=== PATIENT | male | born 1930 ===

== ENCOUNTER 2016-08-22 10:46 | Day surgery (SDC) | payer BC, MEDICARE ==
--- NOTE | 2016-08-07 08:48 | HP ---
ADMISSION HISTORY AND PHYSICAL: DATE OF ADMISSION: 08/22/16 ATTENDING SURGEON: Dr. Luis Conteh. (dictated by MARA Han) CHIEF COMPLAINT: Left inguinal hernia. HISTORY OF PRESENT ILLNESS: This is an 86-year-old male with recently diagnosed left inguinal hernia by Dr. Williamson and referred for evaluation. The patient states that for a period of months, maybe even over the past year or so , he has noted occasional swelling in the left groin and associated discomfort, particularly with increased activity, i.e., standing or walking. He has not had anything to suggest incarceration or strangulation. He has not had any particular changes in his GI function. He was seen in our office by Dr. Conteh on 07/27/16 at which time exam confirmed the presence of a left inguinal hernia which was minimally tender and reducible. Dr. Conteh discussed with him the indications for repair and methods thereof as well as the risks, benefits, and alternatives including the option of no surgery. The patient would like to proceed as scheduled with open repair, left inguinal hernia with mesh. PAST MEDICAL HISTORY: 1. COPD. 2. Moderately severe aortic stenosis (see below). 3. Coronary artery disease (IA x1 at age 68 with recent followup by Dr. Knight). 4. Hyperlipidemia. 5. Chronic low back pain. PAST SURGICAL HISTORY: 1. He is status post open repair AAA, 2003. 2. Right inguinal herniorrhaphy. 3. Cardiac catheterization x3. CURRENT MEDICATIONS: 1. Oxygen 2 L at night and p.r.n. during the day. 2. Amlodipine 5 mg q. day. 3. Lipitor 20 mg q. day. 4. Hydrochlorothiazide 12.5 mg q. day. 5. Lisinopril 40 mg q. day. 6. Toprol-XL 25 mg q. day. 7. Spiriva 18 mcg 1 inhalation daily. 8. Aspirin 81 mg once daily (instructed to continue perioperatively unless otherwise directed by Dr. Knight). 9. Oxycodone/acetaminophen 10/325 one tablet every 4 to 6 hours p.r.n. for pain (he generally uses about 4 and sometimes up to 6 tablets per day). 10. Nitroglycerin 0.4 mg sublingual q.5 minutes up to 3 doses as needed (has not needed). 11. Xanax 0.25 mg q.h.s. p.r.n. for anxiety (uses once or twice weekly). 12. ProAir HFA 108 mcg per activation 2 puffs q.4 hours p.r.n. (uses infrequently). DRUG ALLERGIES: PENICILLIN (rash), ZOCOR (the patient does not recall reaction) . FAMILY HISTORY: Negative for anesthesia problems, bleeding, or clotting disorders. SOCIAL HISTORY: The patient lives alone, but does have a female breakfast supervisor who lives in [place], but sometimes comes up to visit and/or he stays with her when he travels to [place] during the winter. The patient is retired from [employer]. He is a former smoker, 1 pack per day for approximately 65 years. He quit in 2011. He drinks alcohol infrequently. He denies other recreational drug use. REVIEW OF SYSTEMS: General: No recent constitutional symptoms or acute illnesses. His weight has been stable. Cardiovascular: He is followed by Dr. Knight and in fact has an appointment for repeat echo on 08/10/16 and a followup with Dr. Knight on 08/11/16. His most recent echo did show moderate LVH, normal LV function with an EF of 60%, and [id number] aortic stenosis which has been stable. The patient denies chest pain or increased shortness of breath beyond his baseline. Respiratory: COPD, on O2 at h.s. No recent exacerbations. GI: No problems reported other than his chronic constipation for which he uses ex-lax on a p.r.n. basis approximately every third day. No upper GI symptoms. : He is followed by Dr. Williamson. He apparently had some degree of BPH. He has been followed by Dr. 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 Dr. Conteh was planning to discuss any indication for surgery regarding the spermatocele with Dr. Williamson and I will try to confirm that. Endocrine: No diabetes or thyroid dysfunction. Musculoskeletal: Chronic low back pain often involving the left lower extremity as well. PHYSICAL EXAMINATION GENERAL: Well-nourished, well-developed male, in no acute distress. VITAL SIGNS: Height 68.5 inches, weight 192 pounds, blood pressure 118/70, pulse 84, respirations 16. HEENT: Pupils small. EOMs intact. No conjunctival pallor. Oropharynx: He is edentulous. No intraoral lesions. NECK: No lymphadenopathy, thyromegaly, or masses. LUNGS: Clear to auscultation. No rales or wheezes. HEART: Regular rate and rhythm with systolic murmur heard best at the right sternal border. ABDOMEN: Well-healed lower abdominal scar from AAA repair. Left inguinal hernia as per Dr. Conteh' exam, not repeated today. Abdomen otherwise without palpable masses or organomegaly. No tenderness. GENITALIA: Not reexamined. RECTAL: Not done. BACK: No spinous process or CVA tenderness. EXTREMITIES: No edema. NEUROLOGICAL: Grossly intact. SKIN: Warm and dry. No suspicious rashes or lesions. IMPRESSION: Left inguinal hernia. PLAN: Open repair, left inguinal hernia with mesh. MARA MARIA CC: Dr. Ramírez Godinez [facility]; Dr. Tesfaye Williamson; Dr. Rodrigo Knight * [id number]/[facility] #: [id number] [facility]
[~2016-08-22 10:46] MED LIST: Buffered Lidocaine 1% SYRIN* 3 ML/SYR SYRINGE INTRADERM ONE; Bupivacaine 0.5% W/EPI SDV* 30 ML VIAL ONE; Lidocaine 1% INJ* 10 MG/ML 30 ML SDV ONE
[2016-08-22] MEDS ORDERED: ceFAZolin 2 GM PREMIX(*) 2 GM/50 ML BAG IVPB ONE (10:53)
[2016-08-22] MEDS ORDERED: Lidocaine 1% INJ* 10 MG/ML 30 ML SDV ONE (14:49)
[2016-08-22] MEDS ORDERED: Bupivacaine 0.5% W/EPI SDV* 30 ML VIAL ONE (14:49)
[2016-08-22] MEDS ORDERED: Midazolam* 1 MG/ML 2 ML VIAL (2 MG) ONE ×2 (15:07→15:27)
[2016-08-22] MEDS ORDERED: fentaNYL* 50 MCG/ML 2 ML VIAL (100 MCG VIAL) ONE (15:07)
[2016-08-22] MEDS ORDERED: Propofol* 10 MG/ML 20 ML BTL IV PUSH ONE (15:43)
[2016-08-22 17:18] VITALS: BP 113/43
--- NOTE | 2016-08-23 10:48 | OP ---
DATE OF OPERATION: 08/22/16 [facility] DATE OF : 32 SURGEON: Luis Conteh MD [employer]EWEL[employer] DEPARTMENT SUPERVISOR: None. ANESTHESIA: Local MAC. ANESTHESIOLOGIST: Dr. Reina. PRE-OP DIAGNOSIS: Left inguinal hernia. POST-OP DIAGNOSIS: Left inguinal hernia. OPERATIVE PROCEDURE: Open left inguinal hernia repair with mesh. ESTIMATED BLOOD LOSS: Minimal. IV FLUIDS: 950 mL crystalloid. SPECIMEN: None. DRAIN: None. COMPLICATIONS: None. COUNT: The instruments, needle, and sponge counts were correct. DESCRIPTION OF PROCEDURE: The patient was brought to the operating room and placed on the table supine. Sequential compression devices were placed on both lower extremities. Warming blanket was placed. He was prepped and draped in the usual sterile fashion. Received appropriate intravenous antibiotics. Time- out was performed. Local anesthetic was infiltrated into the skin and soft tissue in the left groin as a field block. An oblique incision was created approximately 8 cm long. He had a large amount of subcutaneous adiposity, which made visualization a little more difficult, necessitating a large incision. After dividing subcutaneous tissues with a combination of sharp dissection and cautery , the external oblique aponeurosis was identified. This was infiltrated with additional anesthetic and incised along the line of its fibers through the superficial ring. The underlying ilioinguinal nerve was initially preserved and dissected back; however, during maneuvering of the nerve to position it and preserve it medially, the nerve tore; therefore, it was ligated and approximated with 2-0 Polysorb and ligated distally as well and the intervening segments were removed. The contents of the inguinal canal were then isolated with a quarter-inch Ramana drain at the level of the pubic tubercle and a large indirect inguinal hernia was noted. The cord structures were dissected free from the sac. The sac was dissected back to the deep ring, it was twisted upon itself, ligated with 2-0 Polysorb, and then distally divided. The proximal sac was allowed to retract and then a repair was performed with a polypropylene plug and patch. The plug was fashioned from a piece of 6 x 6 inch polypropylene and after creating a cone-shaped plug, it was placed into the deep ring and sutured to the overlying musculature with 2-0 Polysorb. An onlay patch was fashioned from a separate piece of polypropylene and it was fashioned to cover the floor of the canal and suture it to the pubic tubercle with 2-0 Polysorb, the shelving edge of the inguinal ligament and the conjoined tendon with a split in the mesh laterally to allow the egress of the spermatic cord. The mesh was reconstituted laterally with 2-0 Surgipro and the tail stuck beneath the external oblique aponeurosis, which was then run closed with 2 -0 Polysorb. The Sharon's was closed with 3-0 Polysorb. Skin was closed with 4 -0 Monocryl in a subcuticular fashion. Steri-Strips were applied. The patient tolerated the procedure well and transferred to recovery room in stable condition. CC: Rodrigo Knight MD; Ramírez Godinez MD * [id number]/[facility] #: [id number] MTDD
== END 2016-08-22 17:18 | disposition home or self-care (01) ==
LOC: OR 10:46
PROVIDERS: ATTEND Surgery
DX: K40.90 Unilateral inguinal hernia, without obstruction or gangrene, not specified as recurrent (principal); J44.9 Chronic obstructive pulmonary disease, unspecified; I35.0 Nonrheumatic aortic (valve) stenosis; I25.10 Atherosclerotic heart disease of native coronary artery without angina pectoris; I25.2 Old myocardial infarction; E78.5 Hyperlipidemia, unspecified; Z87.891 Personal history of nicotine dependence
CPT/HCPCS: C1781; J0690; J2001; J2250; J2704; J3010

== ENCOUNTER 2017-08-22 19:00 | Emergency (ER) | payer MEDICARE ==
--- NOTE | 2017-08-22 19:40 | ED ---
Shortness of Breath - HPI Summary HPI Summary: 87-year-old man sent in by ambulance from his doctor's office with chief complaint of intermittent exertional dyspnea with a tightness in the throat that began yesterday. He describes working in his garage for 90 minutes before he have any symptoms at all. This quickly abated after sitting down, resting and putting himself on oxygen. He does wear oxygen at night always. He states that when he puts his oxygen on that his symptoms go away quickly. He went to his doctor's today and reported this, had an EKG and was sent in. He states his doctor told him that he needed to take an ambulance so he didn't have to wait in the waiting room. He denies any chest pain, current shortness of breath , weakness or wheezing. He has not had cough or fever. He has known critical aortic stenosis and is due to have reevaluation for possible repair in the next couple weeks. He really would not like to have this done if it's possible. Currently, his oxygen saturation is 100% on room air. - History of Current Complaint Chief Complaint: EDShortnessOfBreath Time Seen by Provider: 08/22/17 19:14 Hx Obtained From: Patient - Allergy/Home Medications Allergies/Adverse Reactions: Allergies Allergy/AdvReac Type Severity Reaction Status Date / Time Penicillins Allergy Rash Verified 08/22/17 19:13 simvastatin Allergy Unknown Verified 08/22/17 19:13 Reaction Details Home Medications: Home Medications ALPRAZolam TAB* [Xanax TAB*] 0.25 mg PO DAILY PRN MDD 1 tablet 08/22/17 [ History Confirmed 08/22/17] Aspirin EC TAB* [Ecotrin EC Low Dose 81 MG*] 81 mg PO DAILY 08/22/17 [History Confirmed 08/22/17] Atorvastatin* [Lipitor*] 20 mg PO DAILY 08/22/17 [History Confirmed 08/22/17] Hydrochlorothiazide TAB* [Hydrodiuril TAB*] 12.5 mg PO DAILY 08/22/17 [History Confirmed 08/22/17] Lisinopril TAB* [Prinivil TAB*] 40 mg PO DAILY 08/22/17 [History Confirmed 08/22] Metoprolol Succinate XL TAB* [Toprol XL TAB*] 25 mg PO DAILY 08/22/17 [History Confirmed 08/22/17] amLODIPine TAB* [Norvasc 5 mg TAB*] 5 mg PO DAILY 08/22/17 [History Confirmed ] PMH/Surg Hx/FS Hx/Imm Hx Previously Healthy: No - known significant aortic stenosis, COPD with nighttime oxygen Cardiovascular History: Reports: Hx Coronary Artery Disease, Hx Hypertension - controlled with meds, Other Cardiovascular Problems/Disorders - hyperlipidemia GI History: Reports: Other GI Disorders - constipation from pain pills History: Reports: Other Problems/Disorders - enlarged prostate, but no probs Musculoskeletal History: Reports: Hx Arthritis - shoulder, Other Musculoskeletal History - chronic lumbar pain Sensory History: Reports: Hx Cataracts - bilateral, no surgery yet, 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 right inguinal hernia repair - 2000, [facility] [place], [place]. cardiac caths x3 (one in [place], two at [facility]). left wrist ganglion cyst removal - 30 yrs ago - [facility] [place], [place] Hx Anesthesia Reactions: No Infectious Disease History: No Infectious Disease History: Denies: Traveled Outside the [place] in Last 30 Days - Social History Alcohol Use: Rare Substance Use Type: Reports: None Smoking Status (MU): Former Smoker Amount Used/How Often: 1ppd for 65 years Review of Systems Negative: Fever, Chills Negative: Palpitations, Chest Pain Positive: Shortness Of Breath. Negative: Cough Negative: Abdominal Pain, Vomiting, Diarrhea Negative: Weakness, Paresthesia, Numbness, Syncope All Other Systems Reviewed And Are Negative: Yes Physical Exam Triage Information Reviewed: Yes Vital Signs On Initial Exam: Initial Vitals Temp Pulse Resp BP Pulse Ox 98.4 F 56 18 129/59 100 08/22/17 19:14 08/22/17 19:14 08/22/17 19:14 08/22/17 19:14 08/22/17 19:14 Vital Signs Reviewed: Yes Appearance: Positive: Well-Appearing, No Pain Distress, Well-Nourished Skin: Positive: Warm, Skin Color Reflects Adequate Perfusion, Dry Head/Face: Positive: Normal Head/Face Inspection Eyes: Positive: Normal, EOMI ENT: Positive: Normal ENT inspection Neck: Positive: Other: - No JVD Respiratory/Lung Sounds: Positive: Clear to Auscultation, Breath Sounds Present. Negative: Rales, Rhonchi Cardiovascular: Positive: Normal, RRR, Murmur - Great 3 systolic murmur heard best over the aortic valve. Negative: Leg Edema Left, Leg Edema Right Abdomen Description: Positive: Nontender, No Organomegaly Bowel Sounds: Positive: Present Musculoskeletal: Positive: Normal, Strength/ROM Intact Neurological: Positive: Normal, Sensory/Motor Intact, Alert, Oriented to Person Place, Time, CN Intact II-III, Normal Gait Psychiatric: Positive: Normal Diagnostics - Vital Signs Vital Signs Temp Pulse Resp BP Pulse Ox 08/22/17 19:14 98.4 F 56 18 129/59 100 - Laboratory Lab Statement: Any lab studies that have been ordered have been reviewed, and results considered in the medical decision making process. Re-Evaluation - Re-Evaluation First Eval Re-Evaluation Time: 19:37 Change: Improved - Patient walked briskly around the department without any symptoms. His oxygen saturation maintained at 95% and above throughout the entire time. Course/Dx - Course Course Of Treatment: Patient with some tightness in the throat after exerting himself and is described for almost 90 minutes. Symptoms resolved with oxygen. Known critical aortic stenosis. No wheezing, good aeration, oxygen saturations 100% on room air. He is not dyspneic and speaks in full and complete sentences. He continued to talk conversationally throughout his brisk walk around the department, and never dropping oxygen saturations below 95% or experiencing any symptoms. I presume that with more exertion his critical aortic stenosis may be producing symptoms. This is likely why his station mechanic as recommended repair of the valve. This does not appear to be an exacerbation of his COPD. He would like his albuterol inhaler refilled however as it is getting empty. - Diagnoses Provider Diagnoses: Aortic stenosis, Exertional dyspnea, History of COPD Discharge - Sign-Out/Discharge Documenting (check all that apply): Discharge/Admit/Transfer - Discharge Plan Condition: Good Disposition: HOME Patient Education Materials: Aortic Stenosis (ED) Referrals: Pancho Ledesma MD [Primary Care Provider] - Additional Instructions: Have oxygen available should you needed during times of exertion. Uvula clear exhibiting symptoms due to your aortic stenosis. Inhaler was sent anterior pharmacy. Return with chest pain, difficulty breathing, fever/cough, worse or other concerns as discussed. - Billing Disposition and Condition Condition: GOOD Disposition: HOME
[2017-08-22 20:09] VITALS: BP 130/59
== END 2017-08-22 20:09 | disposition home or self-care (01) ==
LOC: ED 19:00
DX: I35.0 Nonrheumatic aortic (valve) stenosis (principal); R06.00 Dyspnea, unspecified; J44.9 Chronic obstructive pulmonary disease, unspecified; Z87.891 Personal history of nicotine dependence; Z88.0 Allergy status to penicillin; Z88.8 Allergy status to other drugs, medicaments and biological substances
CPT/HCPCS: 99282

== ENCOUNTER 2017-09-01 19:47 | Emergency (ER) | payer MEDICARE ==
[2017-09-01 20:18] VITALS: BP 117/54
--- NOTE | 2017-09-01 20:29 | UC ---
Lower Extremity/Ankle HPI - HPI Summary HPI Summary: c/o right foot pain. Unsure of injury. Much worse with walking. Oxycodone very helpful. Noticed swelling in the ankle and the foot last night. No chest pain or change in SOB. - History of Current Complaint Chief Complaint: UCGeneralIllness Stated Complaint: RT FOOT SWELLING Time Seen by Provider: 09/01/17 20:17 Hx Obtained From: Patient Onset/Duration: Sudden Onset, Lasting Days - 1 Severity Initially: Moderate Severity Currently: Moderate Pain Intensity: 4 - 7 with walking Aggravating Factor(s): Standing, Ambulation Alleviating Factor(s): Rest, Elevation Able to Bear Weight: Yes - Risk Factors Gout Risk Factors: Hypertension DVT Risk Factors: Recent Trauma - 5 weeks ago fell and hit knees. Septic Arthritis Risk Factor: Extremes of Age - Allergies/Home Medications Allergies/Adverse Reactions: Allergies Allergy/AdvReac Type Severity Reaction Status Date / Time Penicillins Allergy Rash Verified 09/01/17 20:04 simvastatin Allergy Unknown Verified 09/01/17 20:04 Reaction Details Home Medications: Home Medications Oxycodone HCl/Acetaminophen [Endocet] 1 tab PO Q4H PRN 09/01/17 [History Confirmed 09/01/17] PMH/Surg Hx/FS Hx/Imm Hx - Surgical History Surgical History: Yes Surgery Procedure, Year, and Place: open repair AAA - 2003, [facility]. right inguinal hernia repair - 2000, [facility] [place]. cardiac caths x3 (one in [place], two at [facility]). left wrist ganglion cyst removal - 30 yrs ago - [facility] [place] - Social History Alcohol Use: Rare Substance Use Type: Prescribed Smoking Status (MU): Former Smoker Amount Used/How Often: 1ppd for 65 years When Did the Patient Quit Smoking/Using Tobacco: 6 years ago Review of Systems Respiratory: Shortness Of Breath - chronic Musculoskeletal: Arthralgia, Edema Is Patient Immunocompromised?: No All Other Systems Reviewed And Are Negative: Yes Physical Exam Triage Information Reviewed: Yes Appearance: Well-Appearing, No Pain Distress - at rest, Well-Nourished, Pain Distress - with walking Vital Signs: Initial Vital Signs Temp 99.1 F 09/01/17 20:10 Pulse 69 09/01/17 20:10 Resp 20 09/01/17 20:10 BP 117/54 09/01/17 20:10 Pulse Ox 98 05/05/18 20:10 Vital Signs Reviewed: Yes Eyes: Positive: Conjunctiva Clear Neck exam: Normal Neck: Positive: Supple Respiratory: Positive: Lungs clear Cardiovascular: Positive: RRR, Murmur:Sys:Grade _?_/ - 2-3/ Musculoskeletal: Positive: Edema @ - right LE from below the knee, Other: - Some proximal dorsal foot tenderness Negative Vale's/ or palpable cords. Psychological Exam: Normal Skin Exam: Normal Lower Extremity Course/Dx - Differential Dx/Diagnosis Differential Diagnosis/HQI/PQRI: Fracture (Closed), Sprain, Strain, Tendonitis, Tenosynovitis Provider Diagnoses: Right foot pain. Edema right lower extremity Discharge - Sign-Out/Discharge Documenting (check all that apply): Discharge/Admit/Transfer - Discharge Plan Condition: Stable Disposition: HOME Patient Education Materials: Swollen Joint (ED), Leg Edema (ED) Referrals: Ramírez Godinez MD [Primary Care Provider] - Additional Instructions: Xray is normal except for some arthritis. Keep the leg elevated. If the swelling or pain is worse go to the ER. - Billing Disposition and Condition Condition: STABLE Disposition: HOME
--- NOTE | 2017-09-01 21:08 | RAD ---
INDICATION: Right foot pain and swelling. TECHNIQUE: 3 views of the right foot were obtained. FINDINGS: There is diffuse soft tissue swelling which is most prominent over the dorsal aspect of the foot. The bones of breath and pain in normal alignment. No fracture is seen. 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 IMPRESSION: SOFT TISSUE SWELLING, NO FRACTURE IS SEEN. IF THE PATIENT'S SYMPTOMS PERSIST RECOMMEND FOLLOW-UP IMAGING.
== END 2017-09-01 20:59 | disposition home or self-care (01) ==
LOC: UCCORT 19:47
DX: M79.671 Pain in right foot (principal); R60.9 Edema, unspecified; Z88.1 Allergy status to other antibiotic agents; Z88.8 Allergy status to other drugs, medicaments and biological substances; Z87.891 Personal history of nicotine dependence
CPT/HCPCS: 99211; G0463

== ENCOUNTER 2018-01-19 13:25 | Emergency (ER) | payer MEDICARE ==
--- NOTE | 2018-01-19 14:36 | ED ---
Shortness of Breath - HPI Summary HPI Summary: 87 year old M BIB EMS to [facility] accompanied by son complains of shortness of breath since 3 days ago, worse since 12:00 today. Symptoms aggravated by exertion. Symptoms alleviated by nothing. He reports nausea. He denies chest pain and fever. 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 Per son, patient had aortic valve replaced in October 2017 at [place]. EMS reports patient was hypotensive en route. - History of Current Complaint Chief Complaint: EDShortnessOfBreath Time Seen by Provider: 01/19/18 14:22 Hx Obtained From: Patient, Family/Jumpbasting Lining Baster - son, EMS Onset/Duration: Lasting Days - 3, Still Present, Worse Since - 12:00 today Aggrevating Factors: Other - exertion Alleviating Factors: Nothing - Allergy/Home Medications Allergies/Adverse Reactions: Allergies Allergy/AdvReac Type Severity Reaction Status Date / Time Penicillins Allergy Rash Verified 01/19/18 14:18 simvastatin Allergy Unknown Verified 01/19/18 14:18 Reaction Details Home Medications: Home Medications Clopidogrel TAB* [Plavix TAB*] 75 mg PO DAILY 01/19/18 [History Confirmed ] Ferrous Sulfate TAB* 325 mg PO DAILY 01/19/18 [History Confirmed 01/19/18] Furosemide 20 mg PO DAILY 01/19/18 [History Confirmed 01/19/18] PMH/Surg Hx/FS Hx/Imm Hx Previously Healthy: No Cardiovascular History: Reports: Hx Coronary Artery Disease, Hx Hypertension - controlled with meds, Other Cardiovascular Problems/Disorders - hyperlipidemia Respiratory History: Reports: Hx Chronic Obstructive Pulmonary Disease (COPD) GI History: Reports: Other GI Disorders - constipation from pain pills History: Reports: Other Problems/Disorders - enlarged prostate, but no probs Musculoskeletal History: Reports: Hx Arthritis - shoulder, Other Musculoskeletal History - chronic lumbar pain Denies: Hx Rheumatoid Arthritis, Hx Osteoporosis Sensory History: Reports: Hx Cataracts - bilateral, no surgery yet, 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 open repair AAA - 2003, [facility]. right inguinal hernia repair - 2000, [facility] [place]. cardiac caths x3 (one in [place], two at [facility]). left wrist ganglion cyst removal - [address] ago - [facility] [place] Hx Anesthesia Reactions: No - Immunization History Immunizations Up to Date: Yes Infectious Disease History: No Infectious Disease History: Denies: Traveled Outside the [place] in Last 30 Days - Family History Known Family History: Positive: Other - stroke, Alzheimer's disease - Social History Alcohol Use: Rare Hx Substance Use: Yes Substance Use Type: Reports: Prescribed Hx Tobacco Use: Yes Smoking Status (MU): Former Smoker Amount Used/How Often: 1ppd for 65 years Review of Systems Negative: Fever Positive: Other - dry mouth Negative: Chest Pain Positive: Shortness Of Breath Positive: Nausea All Other Systems Reviewed And Are Negative: Yes Physical Exam - Summary Physical Exam Summary: VITAL SIGNS: Reviewed. GENERAL: Patient is an elderly male who is lying comfortable in the stretcher. Patient is not in any acute respiratory distress. He has some lethargy and hypotension. HEAD AND FACE: No signs of trauma. No ecchymosis, hematomas or skull depressions. No sinus tenderness. EYES: PERRLA, EOMI x 2, No injected conjunctiva, no nystagmus. EARS: Hearing grossly intact. Ear canals and tympanic membranes are within normal limits. MOUTH: Oropharynx within normal limits. NECK: Supple, trachea is midline, no adenopathy, no JVD, no carotid bruit, no c- spine tenderness, neck with full ROM. CHEST: Symmetric, no tenderness at palpation LUNGS: Clear to auscultation bilaterally. No wheezing or crackles. CVS: Ejection systolic murmur 2 out of 10 ABDOMEN: Soft, non-tender. No signs of distention. No rebound no guarding, and no masses palpated. Bowel sounds are normal. EXTREMITIES: FROM in all major joints, no edema, no cyanosis or clubbing. NEURO: Alert and oriented x 3. No acute neurological deficits. Speech is normal and follows commands. SKIN: Dry and warm RECTAL EXAM: No hemorrhoids, no gross blood, no melena Triage Information Reviewed: Yes Vital Signs On Initial Exam: Initial Vitals Temp Pulse Resp BP Pulse Ox 97.2 F 85 22 92/55 100 01/19/18 13:29 01/19/18 13:29 01/19/18 13:29 01/19/18 13:29 01/19/18 13:29 Vital Signs Reviewed: Yes Diagnostics - Vital Signs Vital Signs Temp Pulse Resp BP Pulse Ox 01/19/18 14:05 22 102/54 01/19/18 14:02 95 21 86/51 100 01/19/18 13:29 97.2 F 85 22 92/55 100 - Laboratory Result Diagrams: 01/19/18 15:50 01/19/18 15:50 Lab Statement: Any lab studies that have been ordered have been reviewed, and results considered in the medical decision making process. - Radiology CXR Radiology Interpretation Completed By: Radiologist - No radiographic evidence for acute cardiopulmonary abnormality on this portable chest x-ray. ED physician has reviewed this report. - EKG 1444 Cardiac Rate: NL - 86 BPM EKG Rhythm: Sinus Rhythm EKG Interpretation: No ST elev.Hyperacute T waves in 2,3,4. Inverted T-waves in leads III, AVF. Course/Dx - Course Assessment/Plan: This patient is an 87-year-old male who presents to the emergency department via ambulance with a chief complaint of having shortness of breath for the last couple days worsening this morning. He reports that last night he was unable to sleep because of the shortness of breath. The patient reports no chest pain no fevers no cough no palpitations. EMS reports that the patient was hypertensive initially and he was given 1 unit of IV fluids. Patient has past medical history significant for aortic stenosis status post repair, COPD with nighttime oxygen, coronary disease, hypertension, dyslipidemia. Patient also has history of a AAA repair , inguinal hernia repair , cardiac catheter 3. Initially the patient was placed in a electronic device monitor, the patient's blood pressure during the physical exam is 102/54 however before he was 86/51. Therefore I order a bolus of IV fluids. EKG shows a sinus rhythm at [address] elevations. Has a hyperacute T waves in V2 V3 and V4. Chest x-ray impression: No radiographic evidence of acute cuddy pulmonary abnormality. Blood work shows an hemoglobin of 5.40 with hematocrit of 17 and platelet is 133. INR is 1.06 and PTT of 20.3. Carbon dioxide is 20 BUN is 70 and creatinine 1.26. Glucose 139, lactic acid is 3.1, BNP is 214. Occult blood is positive. At this point since the H&H is low, I discussed the benefits and risk with the patient for blood transfusion. The patient understands the risk and benefits and he accepted for the blood transfusion. The patient will be given PRBCs a total of 2 units of blood. Since the patient has a positive occult blood and we do not have available GI services I discussed with the patient the need for transfer to a facility where we have a GI Services. The patient understands and agrees for the transfer. The patient is a little more stable, the blood pressure is 100/47 and 104/57. The patient is mentating well. At this time I discussed my physical exam findings and test results with Dr. Ivy ED attending at [facility] and he accepted the patient for transfer. Before transfer the patient continues to be alert and oriented 3 and he is more stable. The blood pressure right now is 102/57. The pulse is 84, respiratory rate is 20 O2 sat is 100% with 2 L of oxygen via nasal cannula. - Diagnoses Differential Diagnosis/HQI/PQRI: Positive: Asthma, Bronchitis, CHF, Chest Wall Pain, COPD Exacerbation, [place], Pneumonia, Pulmonary Edema, Unstable Angina Provider Diagnoses: GI bleed, Symptomatic anemia, Acute renal failure - Critical Care Time Critical Care Time: 75-104 min Discharge - Sign-Out/Discharge Documenting (check all that apply): Patient Departure - Discharge Plan Condition: Fair Disposition: TRANS HIGHER LVL OF CARE FAC Referrals: Ramírez Godinez MD [Primary Care Provider] - - Billing Disposition and Condition Condition: FAIR Disposition: Trans Higher Lvl of Care Fac - Attestation Statements Document Initiated by Scribe: Yes Documenting Scribe: Danae Garcia Provider For Whom Elvis is Documenting (Include Credential): Roman Peralta MD Scribe Attestation: I, Danae Garcia, scribed for Roman Peralta MD on 01/19/18 at 1824. Scribe Documentation Reviewed: Yes Provider Attestation: The documentation as recorded by the scribe, Danae Garcia accurately reflects the service I personally performed and the decisions made by me, Roman Peralta MD
[2018-01-19] MEDS ORDERED: NS 0.9% 1000 ML* 1,000 ML IV ONE (14:46)
--- NOTE | 2018-01-19 15:43 | RAD ---
INDICATION: Chest pain and shortness of breath COMPARISON: None. TECHNIQUE: Single AP portable view of the chest was obtained. FINDINGS: Image quality is compromised due to the relative inferiority of a portable chest x-ray. Postsurgical changes include a prostatic aortic valve. The heart and mediastinum exhibit normal size and contour. There is coarse calcification overlying the arch of the aorta. The lungs are grossly clear. There is no evidence of a large pleural effusion. Visualized bones are normal for the patient's age. IMPRESSION: No radiographic evidence for acute cardiopulmonary abnormality on this portable chest x-ray.
[2018-01-19 16:16] LABS: Hematocrit 17 % (42-52); Hemoglobin 5.4 g/dl (14.0-18.0); Mean Corpuscular HGB Conc 33 g/dl (31-36); Mean Corpuscular Hemoglobin 30 pg (27-31); Mean Corpuscular Volume 93 fL (80-94); Mean Platelet Volume 9.5 um3 (7.4-10.4); Platelet Count 133 10^3/ul (150-450); Red Blood Count 1.78 10^6/ul (4.00-5.40); Red Cell Distribution Width 16 % (10.5-15); White Blood Count 9.5 10^3/ul (3.5-10.8)
[2018-01-19 16:20] LABS: INR 1.06 (0.77-1.02)
[2018-01-19 16:26] LABS: EGFR Non-African American 54.3 (>60)
[2018-01-19 16:59] LABS: ABS Basophils 0 10^3/ul (0-0.2); ABS Eosinophils 0 10^3/ul (0-0.6); ABS Lymphocytes 0.8 10^3/ul (1.0-4.8); ABS Monocytes 0.3 10^3/ul (0-0.8); ABS Neutrophils 8.3 10^3/ul (1.5-7.7); ABS Nucleated RBC 0 10^3/ul; Eosinophil % 0 % (0-6); Lymphocyte % 8.8 % (25-47); Nucleated Red Blood Cells % 0
[2018-01-19 19:12] VITALS: BP 118/74
== END 2018-01-19 19:11 | disposition short-term general hospital (02) ==
LOC: ED 13:25
DX: K92.2 Gastrointestinal hemorrhage, unspecified (principal); D64.89 Other specified anemias; N17.9 Acute kidney failure, unspecified; R06.02 Shortness of breath; R11.0 Nausea; Z87.891 Personal history of nicotine dependence
CPT/HCPCS: 36415; 36430; 71045; 80053; 82270; 82550; 82553; 83605; 83874; 83880; 84484; 85025; 85610; 85730; 86140; 86850; 86900; 86901; 86922; 87040; 93005; 96360; 99285; P9040

== ENCOUNTER 2018-01-25 14:08 | Inpatient (IN) | payer MEDICARE ==
[2018-01-25] MEDS ORDERED: NS 0.9% 1000 ML* 1,000 ML IV ONE (14:29)
--- NOTE | 2018-01-25 15:13 | ED ---
Shortness of Breath - HPI Summary HPI Summary: Patient is an 87 y/o male who presents to the ED c/o SOB. He was having his follow up appointment with Dr. Ruby after his GI bleed, and was hypotensive, weak, SOB, and dizzy. Patient was here last week and was transferred to [facility]. He declined an endoscopy and colonoscopy at [facility]. Dr. Ruby requests a rectal exam and H&H for a possible blood transfusion. - History of Current Complaint Chief Complaint: EDShortnessOfBreath Time Seen by Provider: 01/25/18 14:27 Hx Obtained From: Patient Onset/Duration: Gradual Onset, Lasting Days - 1, Worse Since Timing: Constant Dyspnea At: Rest Aggrevating Factors: Nothing Alleviating Factors: Nothing Related History: Similar Episode - Allergy/Home Medications Allergies/Adverse Reactions: Allergies Allergy/AdvReac Type Severity Reaction Status Date / Time Penicillins Allergy Rash Verified 01/25/18 14:22 simvastatin Allergy Unknown Verified 01/25/18 14:22 Reaction Details Home Medications: Home Medications ALPRAZolam TAB* [Xanax TAB*] 0.25 mg PO BEDTIME PRN 01/25/18 [History Confirmed 01/25/18] Finasteride TAB* [Proscar TAB*] 5 mg PO DAILY 01/25/18 [History Confirmed ] Lisinopril TAB* [Prinivil TAB*] 5 mg PO DAILY 01/25/18 [History Confirmed ] Nitroglycerin TAB 0.4 MG* 0.4 mg SL Q5M PRN 01/25/18 [History Confirmed 01/25/18 ] Pantoprazole TAB (NF) [Protonix TAB (NF)] 40 mg PO DAILY 01/25/18 [History Confirmed 01/25/18] Senna TAB* [Senokot TAB*] 2 tab PO DAILY 01/25/18 [History Confirmed 01/25/18] Tiotropium CAP.INH* [Spiriva CAP.INH*] 1 cap.inh INH DAILY 01/25/18 [History Confirmed 01/25/18] ceFUROXime TAB(*) [Ceftin TAB 250 MG(*)] 250 mg PO BID 01/25/18 [History Confirmed 01/25/18] oxyCODONE/Acetamin 10/325(NF) [Percocet 10/325 (NF)] 1 tab PO Q4HR 01/25/18 [ History Confirmed 01/25/18] PMH/Surg Hx/FS Hx/Imm Hx Cardiovascular History: Reports: Hx Coronary Artery Disease, Hx Hypertension - controlled with meds, Other Cardiovascular Problems/Disorders - hyperlipidemia Respiratory History: Reports: Hx Chronic Obstructive Pulmonary Disease (COPD) GI History: Reports: Other GI Disorders - constipation from pain pills History: Reports: Other Problems/Disorders - enlarged prostate, but no probs Musculoskeletal History: Reports: Hx Arthritis - shoulder, Other Musculoskeletal History - chronic lumbar pain Denies: Hx Rheumatoid Arthritis, Hx Osteoporosis Sensory History: Reports: Hx Cataracts - bilateral, no surgery yet, 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 open repair AAA - 2003, [facility]. right inguinal hernia repair - 2000, [facility] [place]. cardiac caths x3 (one in [place], two at [facility]). left wrist ganglion cyst removal - 30 yrs ago - [facility] [place] Hx Anesthesia Reactions: No Infectious Disease History: No Infectious Disease History: Denies: Traveled Outside the [place] in Last 30 Days - Family History Known Family History: Positive: Other - stroke, Alzheimer's disease Negative: Blood Disorder - Social History Alcohol Use: Rare Hx Substance Use: Yes Substance Use Type: Reports: Prescribed Hx Tobacco Use: Yes Smoking Status (MU): Former Smoker Amount Used/How Often: 1ppd for 65 years Review of Systems Positive: Shortness Of Breath Neurological: Other - Dizziness Positive: Weakness All Other Systems Reviewed And Are Negative: Yes Physical Exam - Summary Physical Exam Summary: VITAL SIGNS: Reviewed. GENERAL: Patient is a well-developed and nourished MALE who is lying comfortable in the stretcher. Patient is not in any acute respiratory distress. HEAD AND FACE: No signs of trauma. No ecchymosis, hematomas or skull depressions. No sinus tenderness. EYES: PERRLA, EOMI x 2, No injected conjunctiva, no nystagmus. Pale sclera. EARS: Hearing grossly intact. Ear canals and tympanic membranes are within normal limits. MOUTH: Oropharynx within normal limits. NECK: Supple, trachea is midline, no adenopathy, no JVD, no carotid bruit, no c- spine tenderness, neck with full ROM. CHEST: Symmetric, no tenderness at palpation LUNGS: Clear to auscultation bilaterally. No wheezing or crackles. CVS: Regular rate and rhythm, S1 and S2 present, no murmurs or gallops appreciated. Hypotensive. ABDOMEN: Soft, non-tender. No signs of distention. No rebound no guarding, and no masses palpated. Bowel sounds are normal. EXTREMITIES: FROM in all major joints, no edema, no cyanosis or clubbing. NEURO: Alert and oriented x 3. No acute neurological deficits. Speech is normal and follows commands. SKIN: Dry and warm RECTAL: No hemorrhoids, no melena or gross blood. Triage Information Reviewed: Yes Vital Signs On Initial Exam: Initial Vitals Temp Pulse Resp BP Pulse Ox 97.9 F 68 22 92/63 98 01/25/18 14:19 01/25/18 14:19 01/25/18 14:19 01/25/18 14:19 01/25/18 14:19 Vital Signs Reviewed: Yes Diagnostics - Vital Signs Vital Signs Temp Pulse Resp BP Pulse Ox 01/25/18 14:19 97.9 F 68 22 92/63 98 - Laboratory Result Diagrams: 01/26/18 04:46 01/26/18 04:46 Lab Statement: Any lab studies that have been ordered have been reviewed, and results considered in the medical decision making process. - Radiology CXR Xray Interpretation: No Acute Changes - FINDINGS CONSISTENT WITH COPD, NO EVIDENCE FOR ACUTE FINDING. ED physician reviewed this report. Radiology Interpretation Completed By: Radiologist - EKG 14:39 Cardiac Rate: NL - 62 bpm EKG Rhythm: Sinus Rhythm EKG Interpretation: No ST elevation EKG Comparison: No Significant Change - Similar to EKG done on 01/19/18 Course/Dx - Course Assessment/Plan: Patient is an 87 y/o male who presents to the ED c/o SOB. He was having his follow up appointment with Dr. Ruby after his GI bleed, and was hypotensive, weak, SOB, and dizzy. Patient was here last week and was transferred to [facility]. He declined an endoscopy and colonoscopy at [facility]. Dr. Ruby requests a rectal exam and H&H for a possible blood transfusion. Blood test results shows a hemoglobin of 6.1, hematocrit of 19, chloride 114, BUNs 39 creatinine 1.33. Occult blood is positive. In the ED course the patient was given 2 units of blood. At this point I discuss my physical exam, findings and test results with Dr. Miranda from the hospital services were accepted the patient for admission. Dr. Ruby or Dr. Henriquez done the patient from the GI services. Patient is hemodynamically stable, alert and oriented 3. - Diagnoses Provider Diagnoses: GI bleed - Physician Notifications Discussed Care of Patient With: Gulshan Miranda Time Discussed With Above Provider: 16:00 Instructed by Provider To: Admit As Inpatient - Critical Care Time Critical Care Time: 75-104 min Discharge - Sign-Out/Discharge Documenting (check all that apply): Patient Departure - Admit - Discharge Plan Condition: Stable Disposition: ADMITTED TO [facility] - Billing Disposition and Condition Condition: STABLE Disposition: Admitted to [facility] - Attestation Statements Document Initiated by Scribe: Yes Documenting Scribe: Emily Craft Provider For Whom Pakoibe is Documenting (Include Credential): Roman Peralta MD Scribe Attestation: IEmily, scribed for Roman Peralta MD on 01/26/18 at 0757. Scribe Documentation Reviewed: Yes Provider Attestation: The documentation as recorded by the scribeEmily accurately reflects the service I personally performed and the decisions made by me, Roman Peralta MD
--- NOTE | 2018-01-25 15:34 | RAD ---
INDICATION: Shortness of breath. COMPARISON: Comparison is made with a prior study from January 19, 2018. TECHNIQUE: AP and lateral views of the chest were obtained. FINDINGS: The heart is mildly enlarged and unchanged from the prior exam. The patient appears to be status post aortic valve surgery. The lungs are hyperinflated and clear. No pleural effusion is seen. IMPRESSION: FINDINGS CONSISTENT WITH COPD, NO EVIDENCE FOR ACUTE FINDING.
[2018-01-25 16:00] LABS: Hematocrit 19 % (42-52); Hemoglobin 6.1 g/dl (14.0-18.0); Mean Corpuscular HGB Conc 33 g/dl (31-36); Mean Corpuscular Hemoglobin 31 pg (27-31); Mean Corpuscular Volume 93 fL (80-94); Mean Platelet Volume 9.2 um3 (7.4-10.4); Platelet Count 145 10^3/ul (150-450); Red Blood Count 1.99 10^6/ul (4.00-5.40); Red Cell Distribution Width 17 % (10.5-15); White Blood Count 8.5 10^3/ul (3.5-10.8)
[2018-01-25 16:32] LABS: ABS Basophils 0.1 10^3/ul (0-0.2); ABS Eosinophils 0.1 10^3/ul (0-0.6); ABS Monocytes 0.4 10^3/ul (0-0.8); ABS Nucleated RBC 0 10^3/ul; Eosinophil % 0.7 % (0-6); Lymphocyte % 11.6 % (25-47); Nucleated Red Blood Cells % 0; Tear Drop Cells 1+
[2018-01-25] MEDS ORDERED: Ondansetron INJ* 2 MG/ML VIAL IV PRN (16:37)
[2018-01-25] MEDS ORDERED: Pantoprazole IV* 40 MG IV ONE (16:37)
[2018-01-25] MEDS ORDERED: Albuterol 2.5 MG/3 ML NEB.SOL* (0.083%) INH PRN (16:37)
[2018-01-25] MEDS ORDERED: ALPRAZolam TAB* 0.25 MG PO PRN (16:42)
[2018-01-25 16:55] LABS: INR 1.02 (0.77-1.02)
[2018-01-25] MEDS ORDERED: oxyCODONE/Acetamin 10/325(NF) TAB PO PRN (16:57)
[2018-01-25 17:13] LABS: Hematocrit for Retic CNT 19 % (42-52); Immature Retic Fraction 0.46; RBC Retic Count 1.97 10^6/ul (4.6-6.2)
[2018-01-25] MEDS ORDERED: oxyCODONE/Acetamin 5/325 MG* TAB PO PRN (17:20)
[2018-01-25] MEDS ORDERED: oxyCODONE TAB* 5 MG TAB PO PRN (17:21)
[2018-01-25] MEDS ORDERED: NS 0.9% 500 ML* 500 ML IV ONE (17:41)
[2018-01-25] MEDS ORDERED: oxyCODONE/Acetamin 10/325(NF) TAB PO SCH (18:00)
[2018-01-25] MEDS: Pantoprazole IV* 80 MG in NS 0.9% 250 ML* 250 ML IVPB SCH (19:43)
--- NOTE | 2018-01-25 21:20 | HP ---
CC: Dr. Godinez; Dr. Henriquez; Dr. Ruby; Dr. Knight * HISTORY AND PHYSICAL: DATE OF ADMISSION: 01/25/18 PRIMARY CARE PROVIDER: Dr. Godinez. CONSULTING WINDOW TRIMMER APPRENTICE: Dr. Henriquez. ATTENDING PHYSICIAN WHILE IN THE HOSPITAL: Catrachito Miranda MD * (report dictated by Andrew Francisco NP). CHIEF COMPLAINT: Shortness of breath. HISTORY OF PRESENT ILLNESS: Mr. Tang is an 87-year-old male patient. He has a history of COPD; aortic stenosis, status post TAVR in October of this year. He has a history of an CT, CAD, hypertension, and chronic back pain, and he had a TAVR done in October of this year. He comes into the ER today. He actually was here on 01/19/18, six days ago with a hemoglobin of 5.4 and he was heme- positive in the stool. He was transferred to [facility] due to the lack of GI coverage. He was there and was admitted. They were planning on scoping him the next day; however, he signed out AMA because he was fed up with the blood draws according to the patient. He received 2 units of blood, he was feeling well, he went home, collected himself. The day after being signing out AMA, he called his PCP, he wanted to get the scope done, he was referred back to [facility]. At [facility], his hemoglobin had remained stable, so he was not admitted , he was referred to Dr. Ruby, so he saw Dr. Ruby today. When he was in the office today, on 01/25/18, the patient was complaining of feeling fatigued, short of breath, minimal exertion making him very short of breath, so he was referred to the ER. He does state that when he changes his position, he has been feeling lightheaded and with minimal exertion and walking, he is getting short of breath. He is denying any chest pain. He says he has not fainted. He denies having any nausea or vomiting. He denies any tarry stools. He denies any abdominal discomfort, but he was concerned because of the shortness of breath, so he came in. While , we found that his hemoglobin was 6.1 today and he was also again heme-positive. So because of this, we were asked to evaluate for admission. PAST MEDICAL HISTORY: Significant for: 1. COPD. 2. Aortic stenosis, status post TAVR in October of this year. 3. CAD. 4. CT. 5. Hyperlipidemia. 6. Back pain. PAST SURGICAL HISTORY: 1. He has had AAA repair. 2. TAVR. 3. Hernia repair. 4. Cardiac cath x3. HOME MEDICATIONS: According to the list that was provided include: 1. Proscar 5 mg daily. 2. Spiriva 1 capsule inhaled daily. 3. Percocet 1 tablet every 4 hours as needed for pain. 4. Senna 2 tablets daily. 5. Protonix 40 mg daily. 6. Nitro 0.4 mg sublingual x3 p.r.n. chest pain every 5 minutes. 7. Toprol-XL 25 mg daily. 8. Lisinopril 5 mg daily. 9. Ceftin 250 mg p.o. b.i.d. 10. Furosemide 20 mg daily. 11. Ferrous sulfate 325 mg daily. 12. Plavix 75 mg daily. 13. Norvasc 5 mg daily. 14. Lipitor 20 mg daily. 15. Aspirin 81 mg daily. 16. Ventolin 1 to 2 puffs every 4 hours as needed. 17. Xanax 0.25 mg at bedtime as needed. ALLERGIES TO MEDICATIONS: Include PENICILLIN and SIMVASTATIN. FAMILY HISTORY: His mother had a history of breast cancer. Father had a history of strokes. SOCIAL HISTORY: He is a former smoker, quit about 8 years ago. He does not drink alcohol. Surrogate decision maker is his son, Wilmer. REVIEW OF SYSTEMS: There is no documented fever. He denied having any significant weight change. There was no double vision. He denies having any ear discharge. There is no rhinorrhea. There is no sore throat, no thyroid enlargement. He denies having any chest pain. There was no orthopnea. There is dyspnea on exertion. There is no abdominal pain. There was no nausea, no vomiting. No dysuria, no frequency. No seizure, no loss of consciousness. No pruritus and no skin ulcerations. Review of 14 systems was completed, all others negative. PHYSICAL EXAMINATION GENERAL: At this time, Mr. Tang is an 87-year-old male patient. He is sitting in the ED stretcher. He does not appear to be in any acute distress. VITAL SIGNS: Blood pressure 96/52 with a pulse of 83, respirations were 22, his O2 sat was 100%, temperature 97.9. HEENT: Head: Atraumatic and normocephalic. Eyes: EOMs are intact. Sclerae anicteric and he did appear to be pale. Throat: Oral mucosa appears to be moist. No oropharyngeal erythema. NECK: Supple. LUNGS: Clear to auscultation bilaterally. There were no wheezes, rales, or rhonchi. HEART: Sounds S1, S2. He had a regular rate and rhythm. He had no murmurs, rubs, or gallops. ABDOMEN: Soft, flat, nontender. Bowel sounds were present. EXTREMITIES: Pulses were 2+ throughout. He had no peripheral edema. He had 5/ 5 strength. NEUROLOGICAL: He is awake. He is alert. He is oriented x3. Tongue is midline. No gross focal deficits. SKIN: Intact. DIAGNOSTIC STUDIES/LAB DATA: WBC of 8.5, RBC of 1.99, hemoglobin of 6.1, hematocrit of 19, platelet count of 145. His sodium was 143, potassium was 3.6 , chloride of 114, bicarb 20, BUN 39, creatinine of 1.33, glucose of 110, calcium 9.1. Total bili 0.6, AST 14, ALT 9, alk phos 36. CRP less than 1, albumin 3.5. He did have a chest x-ray obtained today, impression: Findings consistent with COPD. No acute findings. He had an EKG obtained today showing a normal sinus rhythm with a rate of 62. No ST elevations or T-wave inversions were noted with the exception he was inverted in lead V3, flat in II, and inverted in aVF, which was similar to his previous EKGs. Old medical records were reviewed. ASSESSMENT AND PLAN: Mr. Tang is an 87-year-old male patient coming into the ED today with complaints of fatigue, in addition to this dyspnea on exertion , on evaluation was found to have low H and H and heme-positive stool. He will be admitted under inpatient status for: 1. Presumed GI bleed. At this point, I did touch base with Dr. Henriquez. The plan will be to get serial H and Hs, 2 peripheral IVs, start a Protonix drip, give him 2 units of blood tonight. We will certainly watch him closely. His last blood pressure actually was better. It was 126/70. He is not tachycardic. He is asymptomatic. I will continue his beta-jo ann given his history of coronary artery disease with hold parameters. I did touch base with Dr. Knight. He was okay with stopping Plavix and aspirin in the short term. He will evaluate the patient tomorrow. We will place him on clear liquid diet and anticipate hopefully an upper endoscopy tomorrow. 2. Chronic obstructive pulmonary disease. I have ordered p.r.n. albuterol. We will continue his meds as prescribed. He does appear to be stable. 3. Aortic stenosis, status post TAVR. Again, Dr. Knight will be evaluating him. I am sending off LDH. His bili was normal. I do not believe he is hemolyzing as a source of anemia, but it is most likely again slow bleed, but just to be safe we will check those labs and we will continue to follow. 4. Coronary artery disease. Continue on statin and beta-jo ann therapy, holding aspirin. 5. Hyperlipidemia. Continue statin therapy. 6. Again, acute blood loss anemia. Again, I am sending off iron studies, B12, and folate. GI is going to evaluate. 7. Chronic back pain. Continue meds as prescribed. 8. DVT prophylaxis: Because of the active bleeding, he will be placed on SCDs. 9. Code status: Full code. 10. Fluids, electrolytes, and nutrition: A clear liquid diet has been ordered. TIME SPENT: Time spent on the admission was 60 minutes, greater than half the time was spent [id number] with the patient obtaining my history and physical, other half time was spent going over the plan of care with the patient and implementing the plan of care. I did discuss the plan of care with my attending , Dr. Miranda; he is in agreement. ANDREW FRANCISCO, TABITHA [id number]/CPS #: [id number] MTDD
[2018-01-26 01:25] LABS: Hematocrit 21 % (42-52); Hemoglobin 7.2 g/dl (14.0-18.0)
[2018-01-26 04:56] LABS: ABS Basophils 0 10^3/ul (0-0.2); ABS Eosinophils 0.2 10^3/ul (0-0.6); ABS Lymphocytes 1.1 10^3/ul (1.0-4.8); ABS Monocytes 0.4 10^3/ul (0-0.8); ABS Neutrophils 4.1 10^3/ul (1.5-7.7); ABS Nucleated RBC 0 10^3/ul; Eosinophil % 3.1 % (0-6); Hematocrit 20 % (42-52); Hemoglobin 6.8 g/dl (14.0-18.0); Lymphocyte % 19.2 % (25-47); Mean Corpuscular HGB Conc 33 g/dl (31-36); Mean Corpuscular Hemoglobin 31 pg (27-31); Mean Corpuscular Volume 92 fL (80-94); Mean Platelet Volume 8.8 um3 (7.4-10.4); Nucleated Red Blood Cells % 0; Platelet Count 113 10^3/ul (150-450); Red Blood Count 2.21 10^6/ul (4.00-5.40); Red Cell Distribution Width 16 % (10.5-15); White Blood Count 5.7 10^3/ul (3.5-10.8)
[2018-01-26 05:14] LABS: EGFR Non-African American 59.7 (>60)
[2018-01-26] MEDS: Pantoprazole IV* 80 MG in NS 0.9% 250 ML* 250 ML IVPB SCH ×2 (05:36→21:56)
[2018-01-26] MEDS: Tiotropium CAP.INH* CAP.INH/18 MCG (USE ORDER SET !) INH SCH (08:00)
[2018-01-26] MEDS ORDERED: Metoprolol Tartrate TAB* 25 MG PO SCH (09:00)
[2018-01-26] MEDS: Ferrous Sulfate TAB* 325 MG PO SCH (10:10)
[2018-01-26] MEDS: Atorvastatin* 20 MG TAB PO SCH (10:11)
[2018-01-26] MEDS ORDERED: fentaNYL* 50 MCG/ML 2 ML VIAL (100 MCG VIAL) ONE (10:31)
[2018-01-26] MEDS ORDERED: Midazolam* 1 MG/ML 10 ML VIAL (10 MG) ONE (10:32)
--- NOTE | 2018-01-26 10:49 | PN ---
Subjective Date of Service: 01/26/18 Interval History: Mr. Tang states that his throat hurts after the upper endoscopy today but he denies other complaint including chest pain, SOB, nausea, or abdominal pain. He is eager for discharge but is willing to stay overnight. Objective Active Medications: Albuterol (Ventolin 2.5 Mg/3 Ml Neb.Romelia*) 2.5 mg INH Q2H PRN Alprazolam (Xanax Tab*) 0.25 mg PO BEDTIME PRN Atorvastatin Calcium (Lipitor*) 20 mg PO DAILY TONIA Ferrous Sulfate (Ferrous Sulfate Tab*) 325 mg PO DAILY TONIA Pantoprazole Sodium 80 mg/ (Sodium Chloride) 250 mls @ 25 mls/hr IVPB Q10H TONIA Metoprolol Tartrate (Lopressor Tab*) 12.5 mg PO BID TONIA Ondansetron HCl (Zofran Inj*) 4 mg IV Q6H PRN Oxycodone HCl (Roxycodone Tab*) 5 mg PO Q4H PRN Oxycodone/Acetaminophen (Percocet 5/325 Tab*) 1 tab PO Q4H PRN Tiotropium [place] (Spiriva Cap.Inh*) 1 cap INH DAILY TONIA Vital Signs: Temp Pulse Resp BP Pulse Ox 98.5 F 65 18 105/49 100 01/26/18 07:19 01/26/18 09:57 01/26/18 08:00 01/26/18 09:57 01/26/18 09:57 Oxygen Devices in Use Now: Nasal Cannula Appearance: Male lying in bed in NAD Eyes: No Scleral Icterus Ears/Nose/Mouth/Throat: Mucous Membranes Moist Neck: Trachea Midline Respiratory: Symmetrical Chest Expansion and Respiratory Effort, Clear to Auscultation Cardiovascular: NL Sounds; No Murmurs; No JVD, No Edema Abdominal: NL Sounds; No Tenderness; No Distention Extremities: No Edema Skin: No Rash or Ulcers Neurological: Alert and Oriented x 3, NL Muscle Strength and Tone Nutrition: Taking PO's Result Diagrams: 01/26/18 13:13 01/26/18 04:46 Assess/Plan/Problems-Billing Assessment: Mr. Tang is an 87 yo M with a PMH of COPD, aortic stenosis s/p TAVR, AR, CAD , HTN who was admitted on 01/25/18 with symptomatic anemia with heme positive stool suspected secondary to upper GI bleeding. - Patient Problems (1) GI bleed Comment: - With symptomatic acute blood loss anemia. Hgb back to 6.8 after 2 units PRBC, with SBP remaining in the 90s. Plan for additional unit of blood now. - Appreciate consult from Dr. Henriquez. Suspected upper GI bleed based on elevated BUN and heme positive stool with no evidence of overt bleeding. Continue pantoprazole IV. - EGD confirmed AVM which was treated. Continue to monitor H/H overnight. (2) CAD (coronary artery disease) Comment: - Asymptomatic. - Hold plavix and aspirin given GI bleed, cardiac stent not placed recently. - Continue atorvastatin. (3) S/P aortic valve repair Comment: - Noted. (4) Hypertension Comment: - Continue lowered dose of metoprolol. Hold amlodipine, furosemide, and lisinopril. (5) COPD (chronic obstructive pulmonary disease) Comment: - No evdience of acute exacerbation. - Continue albuterol prn and spiriva. (6) DVT prophylaxis Comment: - SCDs only in setting of GI bleed. (7) Full code status Status and Disposition: Inpatient. Anticipate discharge to home when medically stable.
[2018-01-26 13:22] LABS: Hematocrit 21 % (42-52); Hemoglobin 7.1 g/dl (14.0-18.0)
--- NOTE | 2018-01-26 14:05 | CONS ---
CC: Dr. Godinez CARDIOLOGY CONSULTATION REPORT: DATE OF CONSULT: 01/26/18 INDICATION FOR CONSULT: Aortic valve replacement, GI bleed. HISTORY OF PRESENT ILLNESS: The patient is an 87-year-old gentleman well known to me, who has a hist ory of coronary artery disease, history of aortic stenosis, the patient underwent TAVR aortic valve replacement up at [facility] in October of this year. The patient had been maintained o n Plavix and aspirin after his aortic valve replacement. The patient was noted to have severe anemia with hemoglobin down to 5.4. A couple of days ago, he was transferred to [facility], where he tal nned to undergo an endoscopy. The patient signed out AMA. The patient did receive 2 units of blood up there. The patient was re-admitted to the hospital after being seen by GI today and noted to have severe anemia again. The patient's hemoglobin was at 6.1 and heme positive. The patient underwent an endoscopy today, which apparently had AV malformations in his stomach. I do not think any cautery was done. 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 PAST SURGICAL HISTORY: He had AAA repair in the distant past, TAVR done in 2018 in October. OUTPATIENT MEDICATIONS: 1. Proscar 5 mg a day. 2. Spiriva 1 capsule a day. 3. Percocet as directed. 4. Protonix 40 mg a day. 5. Toprol-XL 25 mg a day. 6. Lisinopril 5 mg a day. 7. Lasix 20 mg a day. 8. Plavix 75 mg a day. 9. Norvasc 5 mg a day. 10. Lipitor 20 mg a day. 11. Aspirin 81 mg a day. 12. Multiple inhalers. ALLERGIES: To SIMVASTATIN and PENICILLIN. SOCIAL HISTORY: He is retired, he quit smoking 8 years ago. He denies any alcohol use. He does not get any regular exercise. REVIEW OF SYSTEMS: Per his intake in history and physical. PHYSICAL EXAM: Height is 5 feet 9 inches, weight is 175 pounds, temperature 97.8, heart rate is 65, blood pressure 95/46, respiratory rate is 20, oxygen saturation 95% on 2 L. Sclerae anicteric. Orop harynx is pink without erythema. Carotids are 2+ without bruits. JVD is normal. Thyroid is normal. Cardiac Exam: S1, S2 with 1/6 systolic ejection murmur, no diastolic murmur. PMI is normal. Lung s have decreased breath sounds throughout. There are no rhonchi, there are no rales. On exam, there is no dullness to percussion. Abdomen is soft, nontender, nondistended with normoactive bowel sound s. Extremities show no edema. He has 2+ pulse throughout. The patient is awake, alert, and oriente d. He moves all 4 extremities equally. LABORATORY DATA: White count 5.7, hemoglobin 6.8, hematocrit 20, platelet count 113. Chemistries wi thin normal limits. BUN 31, creatinine 1.1. AST and ALT are normal. IMPRESSION AND PLAN: This is an 87-year-old gentleman with a history of coronary artery disease, his tory of aortic stenosis, who recently underwent transcatheter aortic valve replacement; this was done in October of 2017. The patient was admitted to the hospital with gastrointestinal bleed. 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 It is well known that there is a correlation between aortic stenosis and atrioventricular malformatio n. These atrioventricular malformations may likely get better now that he has had his aortic valve r eplacement done. His bleeding from his arteriovenous malformation is likely due to irritation from the aspirin and Tal vix. It is customary to place patients on aspirin and Plavix after transcatheter aortic valve replacement; however, the duration of that is still being evaluated. For now, my recommendation is to stop his P lavix and aspirin. I think he is relatively low risk for thromboembolic events from his transcathete r aortic valve replacement in October. Further recommendations per his hospitalist and GI doctor. [id number]/[facility] #: [id number]
--- NOTE | 2018-01-26 17:29 | PRO ---
DATE: 01/26/18 REFERRING PHYSICIANS: Ramírez Godinez; Rodrigo Knight. PROCEDURE: Upper gastrointestinal endoscopy and BiCap hemostasis greater curvature AVM with mild bleeding, then hemostatic clip x2. INDICATION: This 87-year-old man, who had a TAVR, 11/07/17, and is now on Plavix and aspirin, was readmitted with shortness of breath, recurrent anemia down to 6.2 and no overt sign of bleeding. See separate consultation. He has not had any vomiting. His stool is usually constipated, sometimes dark, but he has been taking iron for several weeks and has been taking laxatives with dark chunks of stool coming out with a laxative that produces most of his bowel movements a couple of times a week. He had been against having an endoscopy (see other consult), but now consents. ENDOSCOPIST: Dr. Henriquez MEDICATIONS: Midazolam 6, fentanyl 37.5. FINDINGS: He is an elderly man, somewhat chronically ill, but in no acute distress at this time. He was positioned on his side. Moderate sedation was induced with increments of medication and he was quite comfortable, opening his eyes on a couple of occasions, but without focus and again he appeared very comfortable throughout. There was minimal gagging. EGD: Larynx - limited views, appear symmetric, and without AVMs. During the withdrawal phase of the procedure, views around the oral cavity showed under the tongue venous blebs and prominences suggestive of pathologic background. Esophagus - easily entered and the mucosa is normal in the upper, mid, and lower esophagus with the EG junction at 42. There was a small hiatal hernia, though no erosions. There was no Sheridan's change. Stomach - generally normal mucosa with a couple of insignificant, pale, 2-mm polyps in the gastric fundus high up. There was a little bit of blood staining between the rugal folds in the mid greater curvature and with further insufflation adjacent to that, the AVM was seen. It was rather intensely red, 5 mm or so. It was not actively bleeding, but it was clearly adjacent blood staining from recent bleeding. There was no thickness or 3-dimensional aspect to the AVM. The distal body and antrum appeared normal. Duodenum - the pylorus, bulb, and second through fourth portions were normal without any erythema, AVMs, or blood seen. There was a fair amount of motility so views were slightly compromised, but three passes did not show any bleeding and actually fortuitously did not create any slide-by irritation. Coming back to the AVM, it was BiCap'd with 20 duncan in a broad area. There was some trace minimal persistent oozing from the mid portion for a minute and therefore 2 clips were applied with cessation of the oozing. IMPRESSION: 1. Small hiatal hernia - not clinically contributing. 2. Oral venous varicosity anomalies. 3. Greater curvature arteriovenous malformation - BiCap'd and bleeding has stopped. This certainly could be a culprit lesion and possibly the only lesion that has been bleeding. Whether he can be off his aspirin and Plavix for a defined interval or indefinitely is still being determined. If he reverts to heme negative and his hemoglobin stays stable, then no further workup may be necessary. Addendum: Dr Knight's written note says to stop anti platelet agents [id number]/CPS #: [id number] MTDD
[2018-01-26 18:58] LABS: Hematocrit 27 % (42-52); Hemoglobin 8.8 g/dl (14.0-18.0)
--- NOTE | 2018-01-26 19:15 | CONS ---
GASTROENTEROLOGY CONSULT: DATE: CONSULTING PROVIDERS: Ramírez Godinez; Gil Ruby; Rodrigo Knight; Andrew Francisco NP REASON FOR CONSULT: Severe anemia with shortness of breath and heme-positive stool, 01/19/18 and yesterday, the day of admission, 01/25/18. HISTORY OF PRESENT ILLNESS: This 87-year-old man, who quit smoking in 2011, has COPD, and 2 months ago, underwent TAVR at [place] for severe aortic stenosis. Since then, he has been on Plavix and aspirin. He was not listed as being on Plavix in July 2016 at the time of a left inguinal hernia repair by Dr Conteh. He says recently, his appetite has been poor, but there has been no vomiting. He has not complained of any peptic-like distress. His bowels are often constipated and he takes an unspecified laxative in the evening with good results by the next morning. He does that at least twice a week, as more than half of his bowel movements are thus induced. He says those stools are often dark though not black. He was placed on ferrous sulfate 3 weeks ago. Most of the pertinent past medical history would be at the [place] office as he had no hospital visits here from 2005 through July 2016 and following that, no blood work here until 6 days ago when he came in short of breath, was found to have a hemoglobin of 5.4. As outlined in Andrew Francisco's note, on 01/19/18 without GI coverage, he was transferred to [facility] where he signed out AMA before an endoscopy could be done. He was transfused 2 U at [facility]. He was transfused here yesterday 2 units. PAST MEDICAL HISTORY: 1. COPD. 2. Aortic stenosis. 3. History of coronary disease - status post CT 1998 with RCA stent; cath 2013 RCA occluded 4. Dyslipidemia. 5. Chronic back pain - strategies for managing this unknown. 6. BPH. 7. Chronic constipation. 8. Abdominal aortic aneurysm surgery, 2003. HOME MEDICATIONS: See Andrew Francisco's history and physical. Of GI relevance, Protonix 40 mg q.a.m.; Plavix 75; aspirin 81; ferrous sulfate 325 (x3 weeks); senna. ALLERGIES: PENICILLIN and SIMVASTATIN. FAMILY HISTORY: His father had CVAs and mother breast cancer. 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 His proxy is his son, Wilmer. He has a female significant other, who visits him from [place]. REVIEW OF SYSTEMS: No history of CVA; TIA; syncope; seizures; epistaxis, jaundice; abdominal resections, he has had an abdominal aortic aneurysm resection; psoriasis; renal stones. PHYSICAL EXAM: He is a vibrant older man interviewed alone, in no overt distress, speaking at length and sometimes after a couple of minutes giving background information forgetting what the original question was. HEENT exam was unremarkable though he does have prominent venous varicosities under the tongue. He has no adenopathy. His lungs are clear. Heart sounds show a 2-3/6 murmur, aortic type. His abdomen is soft and nontender. Extremities show no edema. Pulses are intact. There are no chronic skin changes. Neurologic is normal with normal cranial nerves, alertness, movement of all 4 extremities. Skin shows no wounds. IMPRESSION: This 87-year-old man on Plavix and aspirin following an aortic valve intervention is showing significant anemia and he has heme+ stool. Anemia apparently has not ever been a major problem before (not mentioned in 2017 notes and no iron then), although his long-term pattern of CBC is not known. He has been on a maintenance PPI and has no upper GI relevant complaints making a peptic process unlikely. He has never had a colonoscopy and is strongly against one. There was no CBC done in our system as a part of his July 2016 hernia repair or during the July and August 2017 ER visits for shortness of breath and perceived ankle swelling. Regardless, it is clear that he is having an accelerated ooze from somewhere in his gastrointestinal tract. While AVMs in the ileocecal area are associated with aortic stenosis a colonoscopy is not easy to carry out. Given the reduced burden and simplicity of doing an upper gastrointestinal evaluation first and his elevated BUN pointing in that direction, upper endoscopy will be done first. [id number]/[facility] #: [id number] GÓMEZ
[2018-01-26] MEDS: Metoprolol Tartrate TAB* 25 MG PO SCH (21:56)
[2018-01-27 00:41] LABS: Hematocrit 22 % (42-52); Hemoglobin 7.4 g/dl (14.0-18.0)
[2018-01-27 06:56] LABS: Hematocrit 25 % (42-52); Hemoglobin 8.5 g/dl (14.0-18.0)
[2018-01-27] MEDS: Tiotropium CAP.INH* CAP.INH/18 MCG (USE ORDER SET !) INH SCH (07:47)
--- NOTE | 2018-01-27 07:54 | PN ---
Subjective Date of Service: 01/27/18 Interval History: Mr. Tang denies complaint of nausea, abdominal pain, lightheadedness or dizziness. He does have some discomfort in his throat since the endoscopy but is able to swallow without difficulty. He is adamant about discharge to home this morning. Objective Active Medications: Albuterol (Ventolin 2.5 Mg/3 Ml Neb.Romelia*) 2.5 mg INH Q2H PRN Alprazolam (Xanax Tab*) 0.25 mg PO BEDTIME PRN Atorvastatin Calcium (Lipitor*) 20 mg PO DAILY TONIA Ferrous Sulfate (Ferrous Sulfate Tab*) 325 mg PO DAILY TONIA Pantoprazole Sodium 80 mg/ (Sodium Chloride) 250 mls @ 25 mls/hr IVPB Q10H TONIA Metoprolol Tartrate (Lopressor Tab*) 12.5 mg PO BID TONIA Ondansetron HCl (Zofran Inj*) 4 mg IV Q6H PRN Oxycodone HCl (Roxycodone Tab*) 5 mg PO Q4H PRN Oxycodone/Acetaminophen (Percocet 5/325 Tab*) 1 tab PO Q4H PRN Tiotropium [place] (Spiriva Cap.Inh*) 1 cap INH DAILY TONIA Vital Signs: Temp Pulse Resp BP Pulse Ox 97.6 F 54 16 102/71 98 01/27/18 02:32 01/27/18 07:48 01/27/18 07:48 01/27/18 02:32 01/27/18 07:49 Oxygen Devices in Use Now: None Appearance: Male lying in bed in NAD Eyes: No Scleral Icterus Ears/Nose/Mouth/Throat: Mucous Membranes Moist Neck: NL Appearance and Movements; NL JVP, Trachea Midline Respiratory: Symmetrical Chest Expansion and Respiratory Effort, Clear to Auscultation Cardiovascular: NL Sounds; No Murmurs; No JVD, No Edema Abdominal: NL Sounds; No Tenderness; No Distention Extremities: No Edema Skin: No Rash or Ulcers Neurological: Alert and Oriented x 3, NL Muscle Strength and Tone Nutrition: Taking PO's Result Diagrams: 01/27/18 06:47 01/26/18 04:46 Assess/Plan/Problems-Billing Assessment: Mr. Tang is an 87 yo M with a PMH of COPD, aortic stenosis s/p TAVR, [place], CAD , HTN who was admitted on 01/25/18 with symptomatic anemia with upper GI bleed secondary to AVM s/p - Patient Problems (1) GI bleed Comment: - With symptomatic acute blood loss anemia. Hgb stable after 3 units PRBC. - Appreciate consult from Dr. Henriquez. Found bleeding AVM on upper endoscopy, s /p clip x 2. (2) CAD (coronary artery disease) Comment: - Asymptomatic. - Hold plavix and aspirin given GI bleed, cardiac stent not placed recently. Will need follow up with GI and Cardiology to determine timing of resumption of meds. - Continue atorvastatin. (3) S/P aortic valve repair Comment: - Noted. (4) Hypertension Comment: - SBP 90-100s. - Continue lowered dose of metoprolol. Hold amlodipine, furosemide, and lisinopril until follow up with PCP. (5) COPD (chronic obstructive pulmonary disease) Comment: - No evdience of acute exacerbation. - Continue albuterol prn and spiriva. (6) DVT prophylaxis Comment: - SCDs only in setting of GI bleed. (7) Full code status Status and Disposition: Inpatient. Anticipate discharge to home when medically stable.
[2018-01-27] MEDS: Metoprolol Tartrate TAB* 25 MG PO SCH (08:10)
[2018-01-27 08:11] VITALS: BP 98/45
[2018-01-27] MEDS: Ferrous Sulfate TAB* 325 MG PO SCH (08:16)
[2018-01-27] MEDS: Atorvastatin* 20 MG TAB PO SCH (08:16)
[2018-01-27] MEDS ORDERED: Polyethylene Glycol 3350* 17 GM PACKET PO PRN (08:35)
--- NOTE | 2018-01-28 00:55 | DS ---
CC: Dr. Godinez; Dr. Knight. * DISCHARGE SUMMARY: DATE OF ADMISSION: 01/25/18 DATE OF DISCHARGE: 01/27/18 PRIMARY CARE PROVIDER: Dr. Godinez. LOCK AND DAM OPERATOR: Dr. Knight. ATTENDING PHYSICIAN: Sherwin Ruiz MD * (dictation provided by Blanca Gonzalez NP ) PRIMARY DIAGNOSES: 1. Symptomatic anemia. 2. 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 SECONDARY DIAGNOSES: 1. Chronic obstructive pulmonary disease. 2. Aortic stenosis, status post transcatheter aortic valve replacement in October 2017. 3. Coronary artery disease with history of myocardial infarction. 4. Hyperlipidemia. 5. Back pain. PAST SURGICAL HISTORY: 1. History of AAA repair. 2. TAVR. 3. Hernia repair. 4. Cardiac cath x3. MEDICATIONS AT THE TIME OF DISCHARGE: 1. Finasteride 5 mg p.o. daily. 2. Spiriva one cap inhale daily. 3. Oxycodone with acetaminophen 10/325 one tablet p.o. q.4 hours p.r.n. 4. Senna two tabs p.o. daily. 5. Pantoprazole 40 mg p.o. daily. 6. Nitroglycerine p.r.n. 7. Metoprolol succinate 25 mg p.o. daily. 8. Ferrous sulfate 325 mg p.o. daily. 9. Atorvastatin 20 mg p.o. daily. 10. Albuterol p.r.n. 11. Alprazolam 0.25 mg p.o. at bedtime p.r.n. The patient has been instructed to hold aspirin and Plavix until followup with Dr. Godinez due to anemia and patient has also been asked to hold amlodipine, lisinopril and furosemide due to relatively low blood pressures in the setting of anemia and to follow up with Dr. Godinez. HOSPITAL COURSE: Mr. Tang is an 87-year-old male patient with past medical history as outlined above who presented to the emergency room 01/25/18 with concern for shortness of breath. Please see dictated H and P from Andrew Francisco NP for complete details. In brief, the patient had been here at our hospital on 01/19/18 and found to have a hemoglobin of 5.4 with heme-positive stool. He was transferred to [facility] due to lack of GI coverage at that point here at our hospital. He was admitted there for plan for scoping but he signed out AMA. Since leaving there, the patient had followed up with Dr. Ruby from Gastroenterology at [facility] and was complaining of feeling fatigued and short of breath on minimal exertion and therefore, he was referred to the emergency room. Here, he was found to have a hemoglobin of 6.1, again with a heme- positive stool. Mr. Tang was admitted to the hospital, he was seen in consultation by Dr. Henriquez from Gastroenterology, I refer you to his note for complete details. In brief, he recommended that the patient have an upper endoscopy based on positive stool, anemia and his elevated BUN. Upper endoscopy found the presence of a bleeding AVM which was clipped x2. Mr. Tang for his anemia received ultimately 3 units of pack red blood cells, his hemoglobin on arrival was 6.1, and today it is 8.5. While in the hospital, we held his amlodipine, furosemide and lisinopril due to relative hypotension, but have continued his metoprolol. With this, his blood pressure has been running 90 to 100. He is up and ambulating in his room independently without lightheadedness or dizziness. Mr. Tang is adamant about discharge to home today and he is stable. Our recommendation would be that he hold aspirin and Plavix until he follows up with Dr. Godinez due to anemia and then he hold amlodipine, furosemide and lisinopril until he follows up with Dr. Godinez due to his relative hypotension, which I think will resolve as his anemia resolves. DISPOSITION: Home. DIET: Low fat and low salt. ACTIVITY: As tolerated. FOLLOWUP PLANS: Please follow up with Dr. Godinez in the next four to seven days regarding this hospitalization. Please follow up with Dr. Henriquez in the next one to two weeks regarding this hospitalization. Please consider following up with Dr. Henriquez, outpatient within the next one to two weeks regarding resumption of aspirin and Plavix. TIME SPENT: Approximately 60 minutes were spent in the discharge of this patient, more than half that time was spent with the patient at the bedside reviewing the events leading up to this hospitalization and during this hospitalization, performing physical examination and reviewing my plan of care. LBANCA GONZALEZ, SIGNAL MAINTAINER [id number]/[facility] #: [id number] GÓMEZ
== END 2018-01-27 11:10 | disposition home or self-care (01) | DRG 811 ==
LOC: ED 14:08 → MED 16:34
PROVIDERS: ADMIT Internal Medicine; ATTEND Internal Medicine
PROC: 30233N1 Transfusion of Nonautologous Red Blood Cells into Peripheral Vein, Percutaneous Approach (ICD-10-PCS; 2018-01-25)
PROC: 0W3P8ZZ Control Bleeding in Gastrointestinal Tract, Via Natural or Artificial Opening Endoscopic (ICD-10-PCS; principal; 2018-01-26)
DX: D62 Acute posthemorrhagic anemia (principal); K31.811 Angiodysplasia of stomach and duodenum with bleeding; J44.9 Chronic obstructive pulmonary disease, unspecified; I11.9 Hypertensive heart disease without heart failure; I25.10 Atherosclerotic heart disease of native coronary artery without angina pectoris; E78.5 Hyperlipidemia, unspecified; K44.9 Diaphragmatic hernia without obstruction or gangrene; M54.9 Dorsalgia, unspecified; N40.0 Benign prostatic hyperplasia without lower urinary tract symptoms; K59.09 Other constipation; L40.9 Psoriasis, unspecified; I86.8 Varicose veins of other specified sites; I25.2 Old myocardial infarction; Z95.2 Presence of prosthetic heart valve; Z95.5 Presence of coronary angioplasty implant and graft; Z79.02 Long term (current) use of antithrombotics/antiplatelets; Z79.82 Long term (current) use of aspirin; Z79.899 Other long term (current) drug therapy; Z88.0 Allergy status to penicillin; Z88.8 Allergy status to other drugs, medicaments and biological substances; Z80.3 Family history of malignant neoplasm of breast; Z82.3 Family history of stroke; Z87.891 Personal history of nicotine dependence
CPT/HCPCS: 36415; 71046; 80048; 80053; 82270; 82607; 82728; 82746; 83010; 83540; 83550; 83615; 83921; 85014; 85018; 85025; 85045; 85610; 85730; 86140; 86850; 86900; 86901; 86922; 93005; 94640; 96374; 99156; 99157; 99283; A9270-GY; J2250; J3010; P9016; P9040